=== PATIENT | male | born 1960 | race Caucasian/White ===

== ENCOUNTER 2018-08-04 13:19 | Outpatient (CLI) | payer OTHER | END 2018-08-04 23:59 | disposition home or self-care (01) | LOC: RAD 13:19 | PROVIDERS: ATTEND Neurological Surgery | DX: R13.14 Dysphagia, pharyngoesophageal phase (principal); K21.9 Gastro-esophageal reflux disease without esophagitis; Z79.899 Other long term (current) drug therapy | CPT/HCPCS: 74230 ==